=== PATIENT | female | born 1985 | race Caucasian/White ===

== ENCOUNTER 2016-09-12 17:27 | Inpatient (IN) | payer SELFPAY ==
[2016-09-12] MEDS ORDERED: NS 1,000 ML IV ONE ×3 (17:55→19:51)
[2016-09-12] MEDS ORDERED: REGULAR INSULIN 100 UNITS/ML - 3 ML VIAL IV ONE (17:56)
[2016-09-12 18:25] LABS: ALLEN'S TEST PASS
[2016-09-12 18:27] LABS: ABG Draw Site Right Radial; PCO2 < 19.0 mmHg (35-45)
[2016-09-12 18:28] LABS: PARTIAL THROMB. TIME 32.1 SEC (22-35); PT-INR 1.1
--- NOTE | 2016-09-12 18:57 | DIRPT ---
CLINICAL DATA: Diabetic ketoacidosis EXAM: PORTABLE CHEST 1 VIEW COMPARISON: None. FINDINGS: The heart size and mediastinal contours are within normal limits. Both lungs are clear. The visualized skeletal structures are unremarkable. IMPRESSION: No active disease. Electronically Signed By: Gladys Mcgregor M.D. On: 09/12/2016 18:54
[2016-09-12 19:03] LABS: MPV 10.4 fL (7.4-10.4)
[2016-09-12 19:10] LABS: BLOOD UREA NITROGEN 19 MG/DL (7-17); CALCIUM 8.6 MG/DL (8.4-10.2); CHLORIDE 107 mEq/L (98-107); SODIUM LEVEL 144 mEq/L (137-146); TOTAL PROTEIN 8.4 G/DL (6.3-8.2)
--- NOTE | 2016-09-12 19:14 | EDPRACDOC ---
- General Information Information Source: Parent Mode of Arrival: Car Home Medications: Home Medications Insulin Aspart [Novolog Flexpen] 0 unit SQ .SEE COMMENTS 09/12/16 Insulin Glargine [Lantus] 40 units SQ DAILY 09/12/16 Nortriptyline HCl [Pamelor] 25 mg PO QHS 09/12/16 Sertraline HCl 50 mg PO DAILY 09/12/16 Allergies/Adverse Reactions: Allergies Allergy/AdvReac Type Severity Reaction Status Date / Time No Known Allergies Allergy Verified 09/12/16 17:35 - History of Present Illness Onset: TODAY Complains Of: Reports: Confusion, Decreased LOC, High Blood Sugar, Vomiting Relevant History: Reports: IDDM Medication Use: Reports: Stopped Vomiting - TNTC: Yes Associated Signs and Symptoms: Reports: None Abdominal Pain Location: Reports: None Abdominal Pain Quality: Reports: None Other History: PT IS UNABLE TO GIVE ANY HX DUE TO SEVERITY OF ILLNESS. PT'S MOM REPORTS THAT SHE HAS NOT BEEN TAKING HER INSULIN. MOM SAID THAT PT KNOWS THAT SHE NEEDS TO TAKE THEM, BUT HAS NOT BEEN DOING IT. MOM SAID SHE LAST HAD DKA ABOUT 5 YEARS AGO AND WENT TO [facility] BECAUSE SHE LIVED IN [place]. MOM SAID PT HAS BECOME INCREASINGLY LETHARGIC SINCE AROUND 1400. ED Past Medical History - Patient Medical History Psychological History: Reports: Depression, Anxiety Systemic History: Reports: Diabetes Surgical History: Reports: No Significant History - Social Medical History Smoking Status: Current status unknown Lives In: Home EDM Review of Systems - Review of Systems ROS Unobtainable: Yes Review of systems cannot be obtained due to the patient's medical condition - Physical Exam Constitutional: Distress, Decreased Consciousness, Somnolent Oriented to: Not Oriented Last recorded Vital Signs: Last Vital Signs Temp 92.2 F L 09/12/16 18:05 Pulse 99 09/12/16 18:26 Resp 24 09/12/16 18:26 BP 114/64 09/12/16 18:26 Pulse Ox 100 09/12/16 17:28 Oxygen Pulse Oxygen Saturation 100 O2 Device Room Air Oxygen Flow Rate Fraction of Inspired Oxygen ( FIO2) - HEENT Head: Normal ( normocephalic) Eye Exam: Normal (PERRL, EOMI, Sclera white) Oropharynx: Membranes Dry ENT EAC: Normal TMJ: Normal Nose: No Symptoms Reported (septum midline) Neck: Normal (FROM, trachea at midline) - Respiratory/Cardiovascular Respiratory: Tachypnea Cardiovascular: Tachycardia - GI Auscultation: Normal (NABS) Palpation: Normal (Soft,No rebound or guarding, non distended) Tenderness: Non tender Mcguire's Sign: Negative - Musculoskeletal Back: Normal (Non-Tender) Extremities: Normal (Normal tone, Pulses 2+ No cyanosis or edema, FROM) - Integumentary Skin: Normal, Warm, Dry Lymphatics: Normal (no adenopathy) - Neurologic Memory Impaired: Unable to Test Motor Function: Unable to Test Cranial Nerve: Unable to Test - Re-evaluation Re-evaluation 1 Re-evaluation Time: 20:00 (IMPROVED, BUT STILL VERY SICK) - Results 09/12/16 18:50 09/12/16 18:50 WBC 49.2 xk/uL (3.8-10.8) H 09/12/16 18:50 RBC 5.26 xM/uL (4.20-5.40) 09/12/16 18:50 Hgb 14.4 g/dL (12.0-16.0) 09/12/16 18:50 Hct 50.5 % (36-47) H 09/12/16 18:50 MCV 96 fL (81-99) 09/12/16 18:50 MCH 27.4 pg (27-32) 09/12/16 18:50 MCHC 28.5 g/dl (33-36) L 09/12/16 18:50 RDW 15.2 % (11.5-14.5) H 09/12/16 18:50 Plt Count 326 xk/uL (130-400) 09/12/16 18:50 MPV 10.4 fL (7.4-10.4) 09/12/16 18:50 PT 11.3 SEC (9.2-11.2) H 09/12/16 18:02 INR 1.1 09/12/16 18:02 APTT 32.1 SEC (22-35) 09/12/16 18:02 Puncture Site Right radial 09/12/16 18:20 pH < 6.910 pH UNITS (7.35-7.45) L* 09/12/16 18:20 pCO2 < 19.0 mmHg (35-45) L* 09/12/16 18:20 pO2 155.0 mmHg (80-100) H 09/12/16 18:20 FiO2 % 0.21 09/12/16 18:20 Specimen Drawn By Frank 09/12/16 18:20 Sodium 144 mEq/L (137-146) 09/12/16 18:50 Potassium 4.6 mEq/L (3.5-5.1) 09/12/16 18:50 Chloride 107 mEq/L (98-107) 09/12/16 18:50 Carbon Dioxide < 5 mMOL/L (22-33) L 09/12/16 18:50 Anion Gap 37 mEq/L (8-16) H 09/12/16 18:50 BUN 19 MG/DL (7-17) H 09/12/16 18:50 Creatinine 1.10 MG/DL (0.52-1.04) H 09/12/16 18:50 Estimated GFR (MDRD) 59 mL/min (>=60) L 09/12/16 18:50 POC Capillary Glucose > 600 mg/dL (70-99) H* 09/12/16 17:53 Calculated Osmolality 274 MOs/Kg (270-290) 09/12/16 18:50 Calcium 8.6 MG/DL (8.4-10.2) 09/12/16 18:50 Total Bilirubin 0.7 MG/DL (0.2-1.3) 09/12/16 18:50 AST 30 IU/L (14-36) 09/12/16 18:50 ALT 22 IU/L (9-52) 09/12/16 18:50 Alkaline Phosphatase 152 IU/L (38-126) H 09/12/16 18:50 Total Protein 8.4 G/DL (6.3-8.2) H 09/12/16 18:50 Albumin 4.3 G/DL (3.5-5.0) 09/12/16 18:50 Lab Results 09/12/16 09/12/16 09/12/16 18:50 18:50 18:20 WBC 49.2 H RBC 5.26 Hgb 14.4 Hct 50.5 H MCV 96 MCH 27.4 MCHC 28.5 L RDW 15.2 H Plt Count 326 MPV 10.4 PT INR APTT Puncture Site Right radial pH < 6.910 L* pCO2 < 19.0 L* pO2 155.0 H FiO2 % 0.21 Specimen Drawn By Belja Sodium 144 Potassium 4.6 Chloride 107 Carbon Dioxide < 5 L Anion Gap 37 H BUN 19 H Creatinine 1.10 H Estimated GFR (MDRD) 59 L POC Capillary Glucose Calculated Osmolality 274 Calcium 8.6 Total Bilirubin 0.7 AST 30 ALT 22 Alkaline Phosphatase 152 H Total Protein 8.4 H Albumin 4.3 09/12/16 09/12/16 18:02 17:53 WBC RBC Hgb Hct MCV MCH MCHC RDW Plt Count MPV PT 11.3 H INR 1.1 APTT 32.1 Puncture Site pH pCO2 pO2 FiO2 % Specimen Drawn By Sodium Potassium Chloride Carbon Dioxide Anion Gap BUN Creatinine Estimated GFR (MDRD) POC Capillary Glucose > 600 H* Calculated Osmolality Calcium Total Bilirubin AST ALT Alkaline Phosphatase Total Protein Albumin - EKG EKG #1 EKG Time: 18:17 -: Yes EKG interpreted by me Rate: bpm: 98 Carm[place]aels: Normal Rhythm: NSR Block: None Hypertrophy: None ST: Normal - Diagnostic Imaging Chest Image interpreted by: Radiologist No active disease. ED Critical Care Note - Critical Care Note Total Time (mins): 60 - Departure Yes I personally saw and evaluated the patient. Disposition: Admit IP To This Hospital Condition: Serious Final Diagnosis: DKA (diabetic ketoacidoses), Noncompliance with medication regimen, Hypothermia Instructions: Weakness (ED), Managing Diabetes During Sick Days (ED), Diabetes and Exercise Education/Counseling Given To: Family Member Education/Counseling Given Regarding: Diagnosis, Treatment Referrals: None,No Provider [Primary Care Provider] - One Week Prescriptions: No Action Sertraline HCl 50 mg PO DAILY Insulin Glargine [Lantus] 40 units SQ DAILY Insulin Aspart [Novolog Flexpen] 0 unit SQ .SEE COMMENTS Nortriptyline HCl [Pamelor] 25 mg PO QHS Forms: Patient Discharge Instructions, ED Discharge Instructions Decision to Admit Time: 20:00 Decision to admit date: 09/12/16 Decision to admit: from ED
[2016-09-12 19:20] LABS: CALCULATED OSMOLALITY 312 MOs/Kg (270-290); GLUCOSE 686 mg/dL (70-99)
[2016-09-12 19:31] LABS: SEG NEUTROPHIL 66 % (45-76); TOTAL CELL COUNT 100
[2016-09-12] MEDS ORDERED: Insulin, Regular 100 UNITS in NS 99 ML IV SCH ×2 (20:00)
[2016-09-12] MEDS ORDERED: SODIUM BICARBONATE 50 MEQ/50 ML (8.4%) PFS IV ONE ×2 (20:08→20:30)
[2016-09-12] MEDS ORDERED: DEXTROSE 25 GM/50 ML PFS IV PRN (20:13)
[2016-09-12 20:15] LABS: LEUKOCYTES/URINE NEG (NEGATIVE); NITRITE/URINE NEG (NEGATIVE); URINE OCCULT BLOOD NEG (NEG/TRACE)
[2016-09-12 20:16] LABS: ALL NEG? YES; MDMA* NEG (NEGATIVE); METHAMPHETAMINES NEG (NEGATIVE); OXYCODONE NEG (NEGATIVE)
--- NOTE | 2016-09-12 20:22 | HISTPHYS ---
- Chief Complaint Patient presents minimally responsive with nausea vomiting and abdominal pain for several days - History of Present Illness 31-year-old female has been diabetic since she was approximately 24 or 25 years old. Her mom states that she hates being young in diabetic so she does not want to take her medicines. Her last episode of DKA was approximately 5 years ago when she was admitted to [facility]. 3-1/2 years ago she will became preeclamptic with her and had to have emergency . Since then she has been relatively stable but intermittently using her medications. Her mom does not know when the last time was she took her insulin. She presented tonight with an anion gap of greater than 30 and a pH of less than 7.0. She will be admitted into the ICU obtunded and unable to provide any history in critical condition. - Medical History Cardiac History: Reports: No Significant History Respiratory History: Reports: No Significant History GI/ History: Reports: No Significant History Musculoskeletal History: Reports: No Significant History Systemic History: Reports: Diabetes Neurological History: Reports: No Significant History Psychological History: Reports: No Significant History, Depression, Anxiety Patient had preeclampsia 3-1/2 years ago and required emergency at 7 months - Surgical History Reports: No Significant History - Medictions/Allergies Allergies No Known Allergies Allergy (Verified 09/12/16 17:35) Current Medication List: Reviewed Home Medications Insulin Aspart [Novolog Flexpen] 0 unit SQ .SEE COMMENTS 09/12/16 Insulin Glargine [Lantus] 40 units SQ DAILY 09/12/16 Nortriptyline HCl [Pamelor] 25 mg PO QHS 09/12/16 Sertraline HCl 50 mg PO DAILY 09/12/16 - Family History Reports: Diabetes (Mother has had diabetes since she was 21) - Social History Travel Outside of [place] in the Last 3 Months?: No Lives: With Family Smoking Status: Current status unknown Social History: Denies: Alcohol Use, Substance Use Disorder - Review of Systems Yes Review of systems cannot be obtained due to the patient's medical condition - Physical Exam Vital Signs: Initial Vitals Pulse Rate 95 09/12/16 17:28 Respiratory Rate 22 09/12/16 17:28 Blood Pressure 94/52 L 09/12/16 17:28 Pulse Oxygen Saturation 99 09/12/16 17:28 Constitutional: Distress (Moderate to severe), Decreased Consciousness. negative: Well appearing Oriented to: Not Oriented - HEENT Head: Normal (normocephalic, atraumatic.), Other (No cervical lymphadenopathy. No supraclavicular lymphadenopathy. Neck: No palpable mass, supple , trachea midline.) Eye: Normal (pupils equal, reactive to light, and round; EOMI, Sclera white) Oropharynx: Membranes Dry. negative: Drooling, Red Tympanic Membrane: Normal (no discharge) Nose: No Symptoms Reported (septum midline, Nares patent, without discharge or bleeding.) Respiratory: Tachypnea Cardiovascular: Tachycardia - GI Auscultation: Normal (normal active sounds) Palpation: Normal (Soft,non distended,nontender. No hepatosplenomegaly.) Tenderness: Non tender (No rebound or guarding) Mcguire's Sign: Negative - Musculoskeletal Back: Normal (Non-Tender) Extremities: Normal (Normal tone, DP pulses 2+ bilaterally, No cyanosis or edema bilaterally, FROM bilaterally.) - Integumentary Skin: Other (Chronic healing ulcers on the shins bilaterally in the anterior area) Lymphatics: Normal (No cervical lymphadenopathy. No supraclavicular lymphadenopathy.) - Neurologic Memory Impaired: Unable to Test Motor Function: Unable to Test Cranial Nerve: Unable to Test Cerebellar: Unable to Test Mood Description: Uncooperative Thought: Rambling Conversation - Focused CV Perfusion Exam Vital Signs: Last Vital Signs Temp 90.6 F L 09/12/16 19:49 Pulse 99 09/12/16 18:26 Resp 24 09/12/16 18:26 BP 114/64 09/12/16 18:26 Pulse Ox 100 09/12/16 17:28 - Lab Results Laboratory Results - last 24 hr 09/12/16 09/12/16 09/12/16 17:53 18:02 18:20 WBC RBC Hgb Hct MCV MCH MCHC RDW Plt Count MPV Neut % (Auto) Lymph % (Auto) [place] % (Auto) Eos % (Auto) Baso % (Auto) Absolute Neuts (auto) Absolute Lymphs (auto) Seg Neuts % (Manual) Band Neutrophils % Lymphocytes % (Manual) Monocytes % (Manual) Absolute Neutrophils Absolute Lymphocytes Platelet Estimate RBC Morphology PT 11.3 H INR 1.1 APTT 32.1 Puncture Site Right radial pH < 6.910 L* pCO2 < 19.0 L* pO2 155.0 H FiO2 % 0.21 Specimen Drawn By Belja Sodium Potassium Chloride Carbon Dioxide Anion Gap BUN Creatinine Estimated GFR (MDRD) Glucose POC Capillary Glucose > 600 H* Calculated Osmolality Calcium Total Bilirubin AST ALT Alkaline Phosphatase Troponin I Total Protein Albumin Urine Color Urine Clarity Urine pH Ur Specific [place] Urine Protein Urine Glucose (UA) Urine Ketones Urine Occult Blood Urine Nitrite Urine Bilirubin Urine Urobilinogen Ur Leukocyte Esterase Urine Mucus Urine Test Urine Opiates Screen Ur Oxycodone Screen Urine Methadone Screen Ur Barbiturates Screen Ur Tricyclics Screen Ur Phencyclidine Scrn Ur Amphetamines Screen U Methamphetamines Scrn Urine MDMA Screen U Benzodiazepines Scrn Urine Cocaine Screen Ur THC Screen 09/12/16 09/12/16 09/12/16 18:50 18:50 19:40 WBC 49.2 H RBC 5.26 Hgb 14.4 Hct 50.5 H MCV 96 MCH 27.4 MCHC 28.5 L RDW 15.2 H Plt Count 326 MPV 10.4 Neut % (Auto) Cancelled Lymph % (Auto) Cancelled [place] % (Auto) Cancelled Eos % (Auto) Cancelled Baso % (Auto) Cancelled Absolute Neuts (auto) Cancelled Absolute Lymphs (auto) Cancelled Seg Neuts % (Manual) 66 Band Neutrophils % 19 H Lymphocytes % (Manual) 11 L Monocytes % (Manual) 4 Absolute Neutrophils 41.82 H Absolute Lymphocytes 5.41 H Platelet Estimate Norm RBC Morphology Norm PT INR APTT Puncture Site pH pCO2 pO2 FiO2 % Specimen Drawn By Sodium 144 Potassium 4.6 Chloride 107 Carbon Dioxide < 5 L Anion Gap 37 H BUN 19 H Creatinine 1.10 H Estimated GFR (MDRD) 59 L Glucose 686 H* POC Capillary Glucose Calculated Osmolality 312 H Calcium 8.6 Total Bilirubin 0.7 AST 30 ALT 22 Alkaline Phosphatase 152 H Troponin I < 0.01 Total Protein 8.4 H Albumin 4.3 Urine Color Urine Clarity Urine pH Ur Specific [place] Urine Protein Urine Glucose (UA) Urine Ketones Urine Occult Blood Urine Nitrite Urine Bilirubin Urine Urobilinogen Ur Leukocyte Esterase Urine Mucus Urine Test Urine Opiates Screen Neg Ur Oxycodone Screen Neg Urine Methadone Screen Neg Ur Barbiturates Screen Neg Ur Tricyclics Screen Neg Ur Phencyclidine Scrn Neg Ur Amphetamines Screen Neg U Methamphetamines Scrn Neg Urine MDMA Screen Neg U Benzodiazepines Scrn Neg Urine Cocaine Screen Neg Ur THC Screen Neg 09/12/16 09/12/16 19:40 19:40 WBC RBC Hgb Hct MCV MCH MCHC RDW Plt Count MPV Neut % (Auto) Lymph % (Auto) [place] % (Auto) Eos % (Auto) Baso % (Auto) Absolute Neuts (auto) Absolute Lymphs (auto) Seg Neuts % (Manual) Band Neutrophils % Lymphocytes % (Manual) Monocytes % (Manual) Absolute Neutrophils Absolute Lymphocytes Platelet Estimate RBC Morphology PT INR APTT Puncture Site pH pCO2 pO2 FiO2 % Specimen Drawn By Sodium Potassium Chloride Carbon Dioxide Anion Gap BUN Creatinine Estimated GFR (MDRD) Glucose POC Capillary Glucose Calculated Osmolality Calcium Total Bilirubin AST ALT Alkaline Phosphatase Troponin I Total Protein Albumin Urine Color Yellow Urine Clarity Clear Urine pH 6.0 Ur Specific [place] 1.015 Urine Protein 2+ H Urine Glucose (UA) 3+ H Urine Ketones 3+ H Urine Occult Blood Neg Urine Nitrite Neg Urine Bilirubin Neg Urine Urobilinogen <2.0 Ur Leukocyte Esterase Neg Urine Mucus Occ Urine Test Neg Urine Opiates Screen Ur Oxycodone Screen Urine Methadone Screen Ur Barbiturates Screen Ur Tricyclics Screen Ur Phencyclidine Scrn Ur Amphetamines Screen U Methamphetamines Scrn Urine MDMA Screen U Benzodiazepines Scrn Urine Cocaine Screen Ur THC Screen - Diagnostic Findings EXAM: PORTABLE CHEST 1 VIEW COMPARISON: None. FINDINGS: The heart size and mediastinal contours are within normal limits. Both lungs are clear. The visualized skeletal structures are unremarkable. IMPRESSION: No active disease. Electronically Signed By: Gladys Mcgregor M.D. On: 09/12/2016 18:54 - Assessment (1) Diabetic ketoacidosis E13.10 - OTH DIABETES MELLITUS WITH KETOACIDOSIS WITHOUT COMA Acute Present on Admission: Yes Qualifiers: Diabetes mellitus type: type 1 Diabetes mellitus complication detail: with coma Qualified Code(s): E10.11 - Type 1 diabetes mellitus with ketoacidosis with coma Patient critically ill with DKA currently comatose and unable to provide any history. Entire history is obtained from the patient's mother patient will be admitted into the ICU on the DKA protocol additionally she will require a bicarb drip due to her pH being less than 7.0. Will obtain frequent blood gases and monitor her pH closely (2) Medical non-compliance Z91.19 - PATIENT'S NONCOMPLIANCE W OTH MEDICAL TREATMENT AND REGIMEN Acute Present on Admission: Yes Patient with a very long history of medical noncompliance will encourage and educate her regarding need to take her insulin. (3) Leukemoid reaction D72.823 - LEUKEMOID REACTION Acute Present on Admission: Yes Patient with a white blood cell count of greater than 40 likely leukemoid reaction due to acute DKA. Will monitor closely and check CBC daily. (4) Renal insufficiency N28.9 - DISORDER OF KIDNEY AND URETER, UNSPECIFIED Acute Present on Admission: Yes Likely due to acute DKA patient likely for 5 L behind in terms of fluid volume status will continue hydration recheck in a.m.. - Plan Due to the presence of and/or the risk of deterioration, my attendance to this patient required critical care time, including assessment/reassessment, documentation, ordering and interpreting ancillary studies, discussion with staff and consultants,patient and family, and excludes time spent on separately billable procedures. In summary, this patient is acutely and critically ill. The patient requires treatment of vital organ failure and measures to prevent further life-threatening deterioration of condition. Case Care Discussed with: Consultants, Family, Nursing Staff Total Time: 95 minutes Critical Care: Yes
[2016-09-12] MEDS: NS 1,000 ML IV ONE ×2 (20:35→22:08)
[2016-09-12] MEDS: SODIUM BICARBONATE 150 MEQ in D5W 1,000 ML IV SCH (20:59)
[2016-09-12] MEDS ORDERED: GLARGINE INSULIN (LANTUS) 100 UNITS/ML PEN SQ SCH (21:00)
[2016-09-12] MEDS ORDERED: DKA ELECTROLYTE PROTOCOL SCH (21:00)
[2016-09-12] MEDS ORDERED: D5W/NS/KCl 20 mEq 1,000 ML IV SCH (21:00)
[2016-09-12] MEDS ORDERED: INSULIN GLARGINE 40 UNIT SQ SCH (21:00)
[2016-09-12] MEDS ORDERED: REGULAR INSULIN 100 UNITS/ML - 3 ML VIAL SQ SCH (21:00)
[2016-09-12 21:12] LABS: ALLEN'S TEST PASS
[2016-09-12 21:32] LABS: ABG Draw Site Right Radial; PCO2 < 19.0 mmHg (35-45)
[2016-09-12 21:38] LABS: BLOOD UREA NITROGEN 18 MG/DL (7-17); CHLORIDE 114 mEq/L (98-107); SODIUM LEVEL 148 mEq/L (137-146)
[2016-09-12 21:43] LABS: CALCULATED OSMOLALITY 309 MOs/Kg (270-290)
[2016-09-12 21:50] LABS: GLUCOSE 508 mg/dL (70-99)
[2016-09-12] MEDS ORDERED: Vaccine Screening Complete SCH (22:00)
[2016-09-12] MEDS: GLARGINE INSULIN (LANTUS) 100 UNITS/ML PEN SQ SCH (22:05)
[2016-09-12] MEDS: ENOXAPARIN 40 MG/0.4 ML PFS SQ SCH (22:07)
[2016-09-12] MEDS: NS/KCl 20 mEq 1,000 ML IV SCH (22:08)
[2016-09-12] MEDS: CHLORHEXIDINE (HIBICLENS) 4 OZ BOTTLE TOP SCH (22:09)
[2016-09-12] MEDS ORDERED: ALPRAZOLAM 0.25 MG TAB PO PRN (22:16)
[2016-09-12 22:27] LABS: LEUKOCYTES/URINE NEG (NEGATIVE); NITRITE/URINE NEG (NEGATIVE); RBC/URINE 0-2 (0-5); URINE OCCULT BLOOD 1+ (NEG/TRACE); WBC/URINE 0-2 (0-5)
[2016-09-12] MEDS ORDERED: SODIUM BICARBONATE 100 ML IV SCH (23:00)
[2016-09-13] MEDS: NS/KCl 20 mEq 1,000 ML IV SCH (00:06)
[2016-09-13 00:49] LABS: VENOUS BEb -21.7 (+/- 2)
[2016-09-13 00:56] LABS: BLOOD UREA NITROGEN 15 MG/DL (7-17); CALCIUM 7.2 MG/DL (8.4-10.2); CALCULATED OSMOLALITY 294 MOs/Kg (270-290); CHLORIDE 115 mEq/L (98-107); GLUCOSE 262 mg/dL (70-99); SODIUM LEVEL 148 mEq/L (137-146)
[2016-09-13] MEDS ORDERED: ACETAMINOPHEN 325 MG/TAB TABLET PO ONE (02:01)
[2016-09-13] MEDS: ACETAMINOPHEN 325 MG/TAB TABLET PO PRN ×3 (02:10→21:44)
[2016-09-13] MEDS ORDERED: D5W/NS/KCl 20 mEq 1,000 ML IV SCH (03:00)
[2016-09-13] MEDS ORDERED: KCl 10 mEq/100 ml Premix (Run) 10 MEQ/100 ML RTU IV ONE (03:00)
[2016-09-13 05:27] LABS: VENOUS BEb -13.5 (+/- 2); VENOUS TCO2 11.8 MMOL/L (23-27)
[2016-09-13] MEDS: Insulin, Regular 100 UNITS in NS 99 ML IV SCH ×4 (06:03→11:43)
[2016-09-13] MEDS: SODIUM BICARBONATE 150 MEQ in D5W 1,000 ML IV SCH (06:03)
[2016-09-13] MEDS: POTASSIUM CHLORIDE 20 MEQ TAB PO SCH ×3 (06:21→17:35)
[2016-09-13] MEDS: KCL 20 mEq/100 ml Premix Run 20 MEQ/100 ML RTU IV SCH ×2 (06:21→10:22)
[2016-09-13 07:15] LABS: VENOUS BEb -9.1 (+/- 2); VENOUS TCO2 14.3 MMOL/L (23-27)
[2016-09-13 07:19] LABS: BLOOD UREA NITROGEN 15 MG/DL (7-17); CALCIUM 7.1 MG/DL (8.4-10.2); CALCULATED OSMOLALITY 282 MOs/Kg (270-290); CHLORIDE 112 mEq/L (98-107); GLUCOSE 205 mg/dL (70-99); SODIUM LEVEL 143 mEq/L (137-146)
[2016-09-13 07:20] LABS: MPV 9.8 fL (7.4-10.4)
[2016-09-13 07:54] LABS: SEG NEUTROPHIL 87 % (45-76)
[2016-09-13] MEDS ORDERED: PNEUMOCOCCAL 0.5 ML VIAL IM ONE ×2 (08:00→10:00)
[2016-09-13 08:24] LABS: VENOUS BEb 1.3 (+/- 2); VENOUS TCO2 26.1 MMOL/L (23-27)
[2016-09-13 09:03] LABS: BLOOD UREA NITROGEN 13 MG/DL (7-17); CALCIUM 6.5 MG/DL (8.4-10.2); CALCULATED OSMOLALITY 287 MOs/Kg (270-290); CHLORIDE 104 mEq/L (98-107); GLUCOSE 429 mg/dL (70-99); SODIUM LEVEL 140 mEq/L (137-146)
--- NOTE | 2016-09-13 09:05 | DIRPT ---
CLINICAL DATA: 31-year-old female with confusion and a we see respirations EXAM: PORTABLE CHEST 1 VIEW COMPARISON: Prior chest x-ray 09/12/2016 FINDINGS: The lungs are clear and negative for focal airspace consolidation, pulmonary edema or suspicious pulmonary nodule. No pleural effusion or pneumothorax. Cardiac and mediastinal contours are within normal limits. No acute fracture or lytic or blastic osseous lesions. The visualized upper abdominal bowel gas pattern is unremarkable. IMPRESSION: Negative chest x-ray Electronically Signed By: Parth Lamas M.D. On: 09/13/2016 09:02
[2016-09-13] MEDS: PIPERACILLIN AND TAZOBACTAM 3.375 GM in D5W 100 ML IV SCH ×3 (10:29→21:44)
[2016-09-13] MEDS: Magnesium Sulfate 2 gm/D5W 2 GM/50 ML RTU IV SCH ×2 (11:32→13:19)
[2016-09-13] MEDS: Levofloxacin 750 mg/150 ml D5W 750 MG/150 ML RTU IV SCH (11:38)
--- NOTE | 2016-09-13 11:42 | GENMEDPROG ---
Chief Complaint: DKA, fever, dehydration, leukocytosis, uncontrolled DM-1, medical non-compliance Notes Reviewed: Yes: Events from last night noted and discussed with Clinical Staff Currently: Reports: Cough. Denies: Wheezing DVT Prophylaxis: Yes - Physical Examination Vital Signs and I&O: Last Vital Signs Temp 99.3 F 09/13/16 11:00 Pulse 110 09/13/16 11:00 Resp 18 09/13/16 06:00 BP 83/45 L 09/13/16 11:00 Pulse Ox 100 09/13/16 06:00 Oxygen Pulse Oxygen Saturation 100 O2 Device Room Air Oxygen Flow Rate Fraction of Inspired Oxygen ( FIO2) Intake & Output 09/10/16 09/11/16 09/12/16 09/13/16 23:59 23:59 23:59 23:59 Intake Total 4585 3300 Output Total 600 1250 Balance 3985 2050 Patient's weight 46.901 kg 48.398 kg General: Alert, Oriented x3, Cooperative, Mild distress, Weakness, Fatigue HEENT: PERRLA, EOMI, Anicteric Sclera, Pallor, Other (conjunctiva injected, lips chapped) Neck: Full range of motion, Normal Trachea alignment, Normal inspection, No Masses palpable, No Thyromegaly palpable Lymphatics: Normal (No cervical lymphadenopathy. No supraclavicular lymphadenopathy.) Respiratory: Normal - CTA, Tachypnea Cardiovascular: Regular rate and rhythm (tachycardic), Normal S1, Normal S2 GI: Normal bowel sounds, Soft, Non tender (thin, nondistended), No masses Extremities/Musculoskeletal: Normal pulses. negative: Swelling Skin: Warm,Dry and Intact, Other (pale, lips dry & chapped) Neurological: Normal speech, Strength at 5/5 X4 ext, Normal tone, Cranial nerves 3-12 NL (Except hearing impaired) Psych/Mental Status: Normal Affect, Cooperative Lab/DI/Studies Reviewed: CXR: IMPRESSION: Negative chest x-ray Electronically Signed By: Parth Lamas M.D. On: 09/13/2016 09:02 Microbiology 09/13/16 10:30 Throat - Rapid Strep Group A Streptococcus Rapid Screen - Final NEGATIVE ("NORMAL" value = "NEGATIVE".) 09/13/16 10:30 N/P - Naso/Pharyngeal Influenza Type A Antigen Screen - Final 09/13/16 10:30 N/P - Naso/Pharyngeal Influenza Type B Antigen Screen - Final NEGATIVE Please note: A NEGATIVE result does not exclude an influenza virus infection. It is a presumptive result and, if required, confirmation should be done using either a virus culture or an FDA-cleared influenza A&B molecular assay. ("NORMAL" value = "NEGATIVE".) NEGATIVE Please note: A NEGATIVE result does not exclude an influenza virus infection. It is a presumptive result and, if required, confirmation should be done using either a virus culture or an FDA-cleared influenza A&B molecular assay. ("NORMAL" value = "NEGATIVE".) Laboratory Tests 09/12/16 18:50 Hemoglobin A1c > 14.0 H Laboratory Tests 09/13/16 09/13/16 09/13/16 05:00 07:05 08:17 WBC 22.0 H Hgb 11.2 L D MCV 85 Plt Count 206 Seg Neuts % (Manual) 87 H Band Neutrophils % 7 H Lymphocytes % (Manual) 3 L Absolute Neutrophils 20.68 H VBG pH 7.40 Mixed VBG pCO2 22.0 L Mixed VBG pO2 47.0 Mixed VBG HCO3 13.6 L Mixed VBG Total CO2 14.3 L Mixed VBG Base Excess -9.1 L Sodium 140 Potassium 2.9 L Chloride 104 Carbon Dioxide 25 Anion Gap 14 BUN 13 Creatinine 0.40 L Estimated GFR (MDRD) > 60 Glucose 429 H POC Capillary Glucose Calculated Osmolality 287 Calcium 6.5 L* Corrected Calcium 8.0 L Phosphorus 1.1 L Magnesium 1.30 L Albumin 2.5 L 09/13/16 09:19 WBC Hgb MCV Plt Count Seg Neuts % (Manual) Band Neutrophils % Lymphocytes % (Manual) Absolute Neutrophils VBG pH Mixed VBG pCO2 Mixed VBG pO2 Mixed VBG HCO3 Mixed VBG Total CO2 Mixed VBG Base Excess Sodium Potassium Chloride Carbon Dioxide Anion Gap BUN Creatinine Estimated GFR (MDRD) Glucose POC Capillary Glucose 169 H Calculated Osmolality Calcium Corrected Calcium Phosphorus Magnesium Albumin - Assessment (1) DKA (diabetic ketoacidoses) Acute E13.10 - OTH DIABETES MELLITUS WITH KETOACIDOSIS WITHOUT COMA Qualifiers: Diabetes mellitus type: type 1 Diabetes mellitus complication detail: without coma Qualified Code(s): E10.10 - Type 1 diabetes mellitus with ketoacidosis without coma Comment/Plan: Patient alert this morning, anion gap is closed, still dehydrated , although renal function retured to normal. Appetite improved. Continues to have electrolyte disturbances. Correct these, and transition to SC insulin, begin feeding with diabetic diet. (2) Febrile illness, acute Acute R50.9 - FEVER, UNSPECIFIED Comment/Plan: Uncertain etiology- evaluate patient for influenza, UTI, acute bronchitis. Initial CXR is clear. Continues to be tachypneic and tachycardic. Have obtained blood and urine cultures and started antibiotics. If cultures remain negative at 72 hours, will stop antibiotics. (3) Leukemoid reaction Acute D72.823 - LEUKEMOID REACTION Comment/Plan: Patient with a white blood cell count of greater than 49.2K on admission, now 22K- likely leukemoid reaction due to acute DKA. Will monitor closely and check CBC daily. (4) Acute kidney injury Acute N17.9 - ACUTE KIDNEY FAILURE, UNSPECIFIED Comment/Plan: Improving with IV fluid hydration. (5) Medical non-compliance Acute Z91.19 - PATIENT'S NONCOMPLIANCE W OTH MEDICAL TREATMENT AND REGIMEN Comment/Plan: Patient with a very long history of medical noncompliance will encourage and educate her regarding need to take her insulin. (6) Hearing impaired person Acute H91.90 - UNSPECIFIED HEARING LOSS, UNSPECIFIED EAR
[2016-09-13] MEDS ORDERED: GLUCAGON 1 MG VIAL SQ PRN (12:11)
[2016-09-13] MEDS ORDERED: DEXTROSE 25 GM/50 ML PFS IV PRN (12:11)
[2016-09-13] MEDS ORDERED: GLUCOSE (ORAL GEL) 15 GM TUBE PO PRN (12:11)
[2016-09-13] MEDS: REGULAR INSULIN 100 UNITS/ML - 3 ML VIAL SQ SCH ×3 (12:43→21:48)
[2016-09-13] MEDS ORDERED: POTASSIUM PHOSPHATE IV ONE (13:00)
[2016-09-13] MEDS ORDERED: NS IV ONE (13:00)
[2016-09-13 13:01] LABS: BLOOD UREA NITROGEN 13 MG/DL (7-17); CALCIUM 7.2 MG/DL (8.4-10.2); CALCULATED OSMOLALITY 275 MOs/Kg (270-290); CHLORIDE 112 mEq/L (98-107); GLUCOSE 198 mg/dL (70-99); SODIUM LEVEL 140 mEq/L (137-146)
[2016-09-13] MEDS: NS/KCL 40 mEq 1,000 ML IV SCH (14:21)
[2016-09-13] MEDS: ENOXAPARIN 40 MG/0.4 ML PFS SQ SCH (17:38)
[2016-09-13 17:58] LABS: BLOOD UREA NITROGEN 11 MG/DL (7-17); CALCIUM 7.5 MG/DL (8.4-10.2); CALCULATED OSMOLALITY 273 MOs/Kg (270-290); CHLORIDE 113 mEq/L (98-107); GLUCOSE 207 mg/dL (70-99); SODIUM LEVEL 139 mEq/L (137-146)
[2016-09-13] MEDS: GLARGINE INSULIN (LANTUS) 100 UNITS/ML PEN SQ SCH (21:49)
[2016-09-13] MEDS: CHLORHEXIDINE (HIBICLENS) 4 OZ BOTTLE TOP SCH (23:59)
[2016-09-14] MEDS: NS/KCL 40 mEq 1,000 ML IV SCH ×4 (00:01→11:02)
[2016-09-14 04:20] LABS: AUTOMATED BASOPHIL 0.2 % (0-2); AUTOMATED EOSINOPHIL 0.9 % (0-5); AUTOMATED LYMPH 27.6 % (17-44); AUTOMATED MONOCYTE 9.8 % (3-10); AUTOMATED NEUTROPHIL 61.5 % (45-76); MPV 9.6 fL (7.4-10.4)
[2016-09-14] MEDS: PIPERACILLIN AND TAZOBACTAM 3.375 GM in D5W 100 ML IV SCH ×2 (04:23→09:25)
[2016-09-14 04:25] LABS: BLOOD UREA NITROGEN 6 MG/DL (7-17); CALCIUM 7.7 MG/DL (8.4-10.2); CALCULATED OSMOLALITY 272 MOs/Kg (270-290); CHLORIDE 115 mEq/L (98-107); GLUCOSE 159 mg/dL (70-99); SODIUM LEVEL 141 mEq/L (137-146)
[2016-09-14] MEDS: POTASSIUM CHLORIDE 20 MEQ TAB PO SCH ×2 (07:56→11:03)
[2016-09-14] MEDS: REGULAR INSULIN 100 UNITS/ML - 3 ML VIAL SQ SCH ×2 (07:57→11:03)
[2016-09-14] MEDS ORDERED: PNEUMOCOCCAL 0.5 ML VIAL IM ONE (08:00)
[2016-09-14 08:06] VITALS: BP 133/80; TEMP 99
[2016-09-14 09:34] VITALS: PULSE 96
--- NOTE | 2016-09-14 10:19 | GENMEDPROG ---
Chief Complaint: DM-1 uncontrolled, dehydration, hearing loss, anemia, chronic malnutrition Currently: Reports: Cough. Denies: Wheezing DVT Prophylaxis: Yes - Physical Examination Vital Signs and I&O: Last Vital Signs Temp 99.0 F 09/14/16 07:00 Pulse 96 09/14/16 09:31 Resp 18 09/14/16 07:00 BP 133/80 09/14/16 07:00 Pulse Ox 99 09/14/16 07:00 Oxygen Pulse Oxygen Saturation 99 O2 Device Room Air Oxygen Flow Rate Fraction of Inspired Oxygen ( FIO2) Intake & Output 09/11/16 09/12/16 09/13/16 09/14/16 23:59 23:59 23:59 23:59 Intake Total 4585 5287 2443 Output Total 600 2550 800 Balance 3985 5337 1643 Patient's weight 46.901 kg 48.398 kg General: Alert, Oriented x3, Cooperative, Mild distress, Weakness, Fatigue HEENT: PERRLA, EOMI, Anicteric Sclera, Pallor, Other (conjunctiva injected, lips chapped) Neck: Full range of motion, Normal Trachea alignment, Normal inspection, No Masses palpable, No Thyromegaly palpable Lymphatics: Normal (No cervical lymphadenopathy. No supraclavicular lymphadenopathy.) Respiratory: Normal - CTA, Tachypnea Cardiovascular: Regular rate and rhythm (tachycardic), Normal S1, Normal S2 GI: Normal bowel sounds, Soft, Non tender (thin, nondistended), No masses Extremities/Musculoskeletal: Normal pulses. negative: Swelling Skin: Warm,Dry and Intact, Other (pale, lips dry & chapped) Neurological: Normal speech, Strength at 5/5 X4 ext, Normal tone, Cranial nerves 3-12 NL (Except hearing impaired) Psych/Mental Status: Normal Affect, Cooperative Lab/DI/Studies Reviewed: Laboratory Tests 09/13/16 09/14/16 09/14/16 21:45 04:00 04:00 WBC 12.1 H Hgb 10.6 L Hct 32.1 L Plt Count 185 Sodium 141 Potassium 4.1 Chloride 115 H Carbon Dioxide 18 L Anion Gap 12 BUN 6 L Creatinine 0.40 L Estimated GFR (MDRD) > 60 Glucose 159 H POC Capillary Glucose Calculated Osmolality 272 Calcium 7.7 L Phosphorus 1.5 L Magnesium 2.90 H 09/14/16 07:54 WBC Hgb Hct Plt Count Sodium Potassium Chloride Carbon Dioxide Anion Gap BUN Creatinine Estimated GFR (MDRD) Glucose POC Capillary Glucose 166 H Calculated Osmolality Calcium Phosphorus Magnesium - Assessment (1) DKA (diabetic ketoacidoses) Resolved E13.10 - OTH DIABETES MELLITUS WITH KETOACIDOSIS WITHOUT COMA Qualifiers: Diabetes mellitus type: type 1 Diabetes mellitus complication detail: with coma Qualified Code(s): E10.11 - Type 1 diabetes mellitus with ketoacidosis with coma Comment/Plan: Patient presented in diabetic coma, acidotic with pH 6.96. Patient alert this morning, anion gap is closed, renal function retured to normal. Appetite improved. Have transitioned to SC insulin, begin feeding with diabetic diet. Instructed patient on need for more frequent self-monitoring of blood sugars and that she must take her insulin 4 times a day. (2) DM (diabetes mellitus), type 1, uncontrolled Acute E10.65 - TYPE 1 DIABETES MELLITUS WITH HYPERGLYCEMIA Qualifiers: Diabetes mellitus complication status: with hyperglycemia Qualified Code(s) : E10.65 - Type 1 diabetes mellitus with hyperglycemia Comment/Plan: Will discharge home on Lantus 46 units daily at bedtime and 6 units regular prior to each meal. Refer patient to diabetes education classes. (3) Febrile illness, acute Acute R50.9 - FEVER, UNSPECIFIED Comment/Plan: Uncertain etiology- evaluate patient for influenza, UTI, acute bronchitis. Initial CXR is clear. Continues to be tachypneic and tachycardic. Have obtained blood and urine cultures and started antibiotics. All cultures remain negative at 72 hours, will stop antibiotics. (4) Leukemoid reaction Acute D72.823 - LEUKEMOID REACTION Comment/Plan: Patient with a white blood cell count of greater than 49.2K on admission, now 12.1K- likely leukemoid reaction due to acute DKA. Will monitor closely and check CBC daily. (5) Acute kidney injury Acute N17.9 - ACUTE KIDNEY FAILURE, UNSPECIFIED Comment/Plan: Improved with IV fluid hydration. (6) Medical non-compliance Acute Z91.19 - PATIENT'S NONCOMPLIANCE W OTH MEDICAL TREATMENT AND REGIMEN Comment/Plan: Patient with a very long history of medical noncompliance will encourage and educate her regarding need to take her insulin. (7) Hearing impaired person Acute H91.90 - UNSPECIFIED HEARING LOSS, UNSPECIFIED EAR Qualifiers: Laterality: bilateral Qualified Code(s): H91.93 - Unspecified hearing loss , bilateral Case Care Discussed with: Patient, Family, Nursing Staff Education/Counseling Given To: Patient, Family Member Education/Counseling Given Regarding: Diagnosis, Treatment, Prognosis Total Time: 45 min Critical Care: No Couseling Time (>50% in counseling/coordination): Yes Code: 81682 (>30min.)
--- NOTE | 2016-09-14 10:41 | PCM.DCS92 ---
- Final/Secondary Discharge Diagnosis (1) DKA (diabetic ketoacidoses) Resolved E13.10 - OTH DIABETES MELLITUS WITH KETOACIDOSIS WITHOUT COMA Present on Admission: Yes type 1 with coma E10.11 - Type 1 diabetes mellitus with ketoacidosis with coma Comment: Patient presented in diabetic coma, acidotic with pH 6.96. Patient alert this morning, anion gap is closed, renal function retured to normal. Appetite improved. Have transitioned to SC insulin, begin feeding with diabetic diet. Instructed patient on need for more frequent self-monitoring of blood sugars and that she must take her insulin 4 times a day. (2) DM (diabetes mellitus), type 1, uncontrolled Acute E10.65 - TYPE 1 DIABETES MELLITUS WITH HYPERGLYCEMIA Present on Admission: Yes with hyperglycemia E10.65 - Type 1 diabetes mellitus with hyperglycemia Comment: Will discharge home on Lantus 46 units daily at bedtime and 6 units regular prior to each meal. Refer patient to diabetes education classes. (3) Febrile illness, acute Acute R50.9 - FEVER, UNSPECIFIED Present on Admission: Yes Comment: Uncertain etiology- evaluated patient for influenza, UTI, acute bronchitis. Initial CXR is clear. Continued to be tachypneic and tachycardic. Have obtained blood and urine cultures and started antibiotics. All cultures remain negative at 72 hours, Patient c/o cough and chest pain, repeat CXR clear, will discharge on PO Augmentin. Probable acute bronchitis. (4) Leukemoid reaction Resolved D72.823 - LEUKEMOID REACTION Present on Admission: Yes Comment: Patient with a white blood cell count of greater than 49.2K on admission, now 12.1K- likely leukemoid reaction due to acute DKA vs infection. ( see remarks above) (5) Acute kidney injury Resolved N17.9 - ACUTE KIDNEY FAILURE, UNSPECIFIED Present on Admission: Yes Comment: Improved with IV fluid hydration. (6) Medical non-compliance Acute Z91.19 - PATIENT'S NONCOMPLIANCE W OT MEDICAL TREATMENT AND REGIMEN Present on Admission: Yes Comment: Patient with a very long history of medical noncompliance will encourage and educate her regarding need to take her insulin. (7) Hearing impaired person Acute H91.90 - UNSPECIFIED HEARING LOSS, UNSPECIFIED EAR bilateral H91.93 - Unspecified hearing loss, bilateral Discharge Disposition: Home Discharge Condition: Improved Cognitive Discharge Status: Unimpaired Fuctional Discharge Status: Independent Forms: Patient Discharge Instructions Physician Follow up/Referrals: Stephen Porter MD [Other] - One Week Home Medications / New Prescriptions: New Alprazolam [Xanax] 0.25 mg PO QHS #30 tablet Amoxicillin/Potassium Clav [Augmentin 875-125 Tablet] 1 each PO BID #14 tablet Insulin Glargine [Lantus Pen] 40 units SQ HS #1 pen Continue Sertraline HCl 50 mg PO DAILY #30 tablet Changed Insulin Aspart [Novolog Flexpen] 6 unit SQ .SEE COMMENTS #1 insuln.pen Discontinued Insulin Glargine [Lantus] 40 units SQ DAILY Nortriptyline HCl [Pamelor] 25 mg PO QHS O2 Device: Room Air Diet at Discharge: Diabetic, 1800 Calorie Activity: As Tolerated Call Office For: Worsening Symptoms, Fever over 101 F Discontinue use of:: Alcohol, All Types of Tobacco - DC Summary Notes Hospital Course Note:: Discharge summary on patient named ALEXX MONTIEL admitted to [facility] on 09/12/16 by Tasha Peck MD. Date of discharge is [09/14/16].31 -year-old female has been diabetic since she was approximately [age] years old. Her mom states that she hates being young in diabetic so she does not want to take her medicines. Her last episode of DKA was approximately 5 years ago when she was admitted to [facility]. 3-1/2 years ago she will became preeclamptic with her and had to have emergency . Since then she has been relatively stable but intermittently using her medications. Her mom does not know when the last time was she took her insulin. She presented tonight with an anion gap of greater than 30 and a pH of less than 7.0. She will be admitted into the ICU obtunded and unable to provide any history in critical condition. Patient presented in diabetic coma, acidotic with pH 6.96. She was admitted to the ICU in critical condition, treated with rapid IV fluid resuscitation, IV bicarb and an insulin infusion. Patient alert this morning, anion gap is closed, renal function returned to normal. She continued to require additional fluids and diabetic instruction as well as correction of her electrolytes the next day. Her appetite has improved and she has been transitioned to SC insulin , began feeding with diabetic diet. Instructed patient on need for more frequent self-monitoring of blood sugars and that she must take her insulin 4 times a day. She will be discharged today with a referral to Dr. Stephen Porter, an rides supervisor close to her home, for continued diabetes follow-up. Presently she is doing well with 40 units of Lantus at bedtime and 6 units of Novolog prior to each meal. I will give her a sliding scale to use with that also. I have counselled on the importance of taking her medication, especially her insulin, as directed, and checking her capillary blood glucose frequently. Total Time: 45 min Code: 58249 (>30min.) - Physical Exam Vital Signs: Last Vital Signs Temp 99.0 F 09/14/16 07:00 Pulse 96 09/14/16 09:31 Resp 18 09/14/16 07:00 BP 133/80 09/14/16 07:00 Pulse Ox 99 09/14/16 07:00 Oxygen Pulse Oxygen Saturation 99 O2 Device Room Air Oxygen Flow Rate Fraction of Inspired Oxygen ( FIO2) Constitutional: No apparent distress, Alert, Well appearing. negative: Well nourished Oriented to: Time, Person, Place - HEENT Head: Normal (normocephalic, atraumatic.), Other (No cervical lymphadenopathy. No supraclavicular lymphadenopathy. Neck: No palpable mass, supple , trachea midline.) Eye: Normal (pupils equal, reactive to light, and round; EOMI, Sclera white) Oropharynx: Normal. negative: Drooling, Red Tympanic Membrane: Normal (no discharge) Nose: No Symptoms Reported (septum midline, Nares patent, without discharge or bleeding.) - Respiratory/Cardiovascular Respiratory: Normal - CTA Cardiovascular: Normal - GI Auscultation: Normal (normal active sounds) Palpation: Normal (Soft,non distended,nontender. No hepatosplenomegaly.) Tenderness: Non tender (No rebound or guarding) Mcguire's Sign: Negative - Musculoskeletal Back: Normal (Non-Tender) Extremities: Normal (Normal tone, DP pulses 2+ bilaterally, No cyanosis or edema bilaterally, FROM bilaterally.) - Integumentary Skin: Warm, Dry Lymphatics: Normal (No cervical lymphadenopathy. No supraclavicular lymphadenopathy.) - Neurologic Memory Impaired: Normal Motor Function: Normal Cranial Nerve: Normal Cerebellar: Normal Mood Description: Normal Thought: Coherent Perception: Normal
[2016-09-14 10:57] VITALS: BMI 20.9
[2016-09-14] MEDS: Levofloxacin 750 mg/150 ml D5W 750 MG/150 ML RTU IV SCH (10:57)
[2016-09-15] MEDS ORDERED: PNEUMOCOCCAL 0.5 ML VIAL IM ONE (08:00)
== END 2016-09-14 12:25 | disposition home or self-care (01) | DRG 638 ==
LOC: ED 17:27 → ICU 20:11
PROVIDERS: ADMIT Hospitalist; ATTEND Family Medicine
PROC: 4A033R1 Measurement of Arterial Saturation, Peripheral, Percutaneous Approach (ICD-10-PCS; principal; 2016-09-12)
DX: E10.11 Type 1 diabetes mellitus with ketoacidosis with coma (principal); L97.229 Non-pressure chronic ulcer of left calf with unspecified severity; L97.219 Non-pressure chronic ulcer of right calf with unspecified severity; Z23 Encounter for immunization; R50.9 Fever, unspecified; D72.823 Leukemoid reaction; T38.3X6A Underdosing of insulin and oral hypoglycemic [antidiabetic] drugs, initial encounter; Y92.9 Unspecified place or not applicable; H91.93 Unspecified hearing loss, bilateral; F32.9 Major depressive disorder, single episode, unspecified; F41.9 Anxiety disorder, unspecified; Z83.3 Family history of diabetes mellitus; N28.9 Disorder of kidney and ureter, unspecified
CPT/HCPCS: 36415; 36600; 71010; 80048; 80053; 80307; 81001; 81025; 82040; 82803; 82962; 83036; 83735; 84100; 84484; 85007; 85025; 85027; 85610; 85730; 87040; 87086; 87641; 87804; 87880; 90471; 90732; 93005; 96361; 96365; 96372; 96375; 99284; J1650; J1815; J1956; J2543; J3475; J3480; J3490; J7030; J7040; J7060; J7070